=== PATIENT | male | born 1945 | race Caucasian/White ===

== ENCOUNTER 2021-05-17 08:46 | Outpatient (CLI) | payer MEDICARE, BC | END 2021-05-17 08:47 | disposition home or self-care (01) | LOC: CSHCT 08:46 | PROVIDERS: ATTEND Internal Medicine Hematology & Oncology | DX: C20 Malignant neoplasm of rectum (principal); Z98.890 Other specified postprocedural states | CPT/HCPCS: 71260; 74177; 82565 ==

== ENCOUNTER 2021-09-30 11:56 | Outpatient (CLI) | payer MEDICARE, BC ==
[2021-09-30 13:07] LABS: Hemoglobin 12.4 g/dL (13.5-17.5); Mean Corpuscular HGB CONC 32.5 g/dL (32.0-36.0); Mean Corpuscular Hemoglobin 30.5 pg (27.0-33.0); Mean Corpuscular Volume 93.6 fl (81.2-95.1); Mean Platelet Volume 9.5 fl (7.4-10.4); Platelet Count 241 10x3/uL (150-450); RBC Distribution Width 13.2 % (11.5-14.5); Red Blood Cell (RBC) Count 4.07 10x6/uL (4.32-5.72)
[2021-09-30 13:21] LABS: PTT 25.4 sec (22.0-33.0); Prothrombin Time 10.7 sec (9.5-12.1)
[2021-09-30 13:23] LABS: Anion Gap 15 mmol/L (10-20); BUN (Urea Nitrogen) 39 mg/dL (8.4-25.7); Calc. Creatinine Clearance 0 mL/min (70-130); Calcium 9.9 mg/dL (7.8-10.44); Carbon Dioxide 24 mmol/L (23-31); Chloride 103 mmol/L (98-107); Glucose 117 mg/dL (83-110); Potassium 4.1 mmol/L (3.5-5.1); Sodium 138 mmol/L (136-145)
[2021-09-30 16:45] LABS: Hemoglobin A1c 6.4 % (4.0-6.0)
[2021-10-01 12:54] LABS: SARS-CoV-2 PCR by NAA Not Detected (NotDetected)
== END 2021-09-30 11:57 | disposition home or self-care (01) ==
LOC: CSHLAB 11:56
PROVIDERS: ATTEND Orthopaedic Surgery
DX: Z01.818 Encounter for other preprocedural examination (principal); Z20.822 Contact with and (suspected) exposure to COVID-19; M12.811 Other specific arthropathies, not elsewhere classified, right shoulder; M75.101 Unspecified rotator cuff tear or rupture of right shoulder, not specified as traumatic; M71.311 Other bursal cyst, right shoulder
CPT/HCPCS: 80048; 82306; 83036; 85027; 85610; 85730; 87081; 93005; 93010; U0003; U0005

== ENCOUNTER 2021-11-18 08:26 | Outpatient (CLI) | payer MEDICARE, BC | END 2021-11-18 08:27 | disposition home or self-care (01) | LOC: CSHCT 08:26 | PROVIDERS: ATTEND Internal Medicine Hematology & Oncology | DX: C20 Malignant neoplasm of rectum (principal); Z98.890 Other specified postprocedural states | CPT/HCPCS: 71260; 74177; 82565 ==

== ENCOUNTER 2022-03-03 10:50 | Outpatient (CLI) | payer MEDICARE, BC ==
[2022-03-03 11:40] LABS: #Basophils 0.1 10x3/uL (0.0-0.2); #Eosinphils 0.4 10x3/uL (0.0-0.5); #Monocytes 0.6 10x3/uL (0.0-1.1); %Basophils 0.7 % (0.0-2.0); %Eosinophils 5.5 % (0.0-6.0); %Lymphocytes 14.6 % (18.0-47.0); %Monocytes 8.1 % (0.0-10.0); %Neutrophils 70.7 % (40.0-75.0); Hemoglobin 12.4 g/dL (13.5-17.5); Mean Corpuscular HGB CONC 33.8 g/dL (32.0-36.0); Mean Corpuscular Hemoglobin 30.6 pg (27.0-33.0); Mean Corpuscular Volume 90.6 fl (81.2-95.1); Mean Platelet Volume 8.9 fl (7.4-10.4); Platelet Count 225 10x3/uL (150-450); RBC Distribution Width 13.2 % (11.5-14.5); Red Blood Cell (RBC) Count 4.05 10x6/uL (4.32-5.72); White Blood Cell (WBC) Count 7.1 10x3/uL (3.5-10.5)
[2022-03-03 11:59] LABS: Anion Gap 15 mmol/L (10-20); BUN (Urea Nitrogen) 25 mg/dL (8.4-25.7); Calc. Creatinine Clearance 0 mL/min (70-130); Calcium 9.7 mg/dL (7.8-10.44); Carbon Dioxide 25 mmol/L (23-31); Chloride 101 mmol/L (98-107); Glucose 120 mg/dL (83-110); Potassium 3.5 mmol/L (3.5-5.1); Sodium 137 mmol/L (136-145)
[2022-03-03 12:18] LABS: Prothrombin Time 10.4 sec (9.5-12.1)
== END 2022-03-03 10:51 | disposition home or self-care (01) ==
LOC: CSHLAB 10:50
PROVIDERS: ATTEND Orthopaedic Surgery
DX: Z01.812 Encounter for preprocedural laboratory examination (principal); Z20.822 Contact with and (suspected) exposure to COVID-19; M12.811 Other specific arthropathies, not elsewhere classified, right shoulder; M75.101 Unspecified rotator cuff tear or rupture of right shoulder, not specified as traumatic; M71.311 Other bursal cyst, right shoulder
CPT/HCPCS: 80048; 82306; 83036; 85025; 85610; 87081; U0003; U0005

== ENCOUNTER 2022-03-03 11:00 | Inpatient (IN) | payer MEDICARE, BC ==
[2022-03-03 13:43] VITALS: BMI 36.2
[2022-04-19] MEDS ORDERED: Tranexamic Acid 1,000 MG/10 ML VIAL ONE (08:22)
[2022-04-19] MEDS ORDERED: Neomycin-Polymyxin 1 ML AMP ONE (08:22)
[2022-04-19] MEDS ORDERED: Lidocaine 1% MPF 2 ML VIAL ONE (11:13)
[2022-04-19] MEDS ORDERED: Gabapentin 300 MG CAP ONE (11:13)
[2022-04-19] MEDS ORDERED: Ketorolac Tromethamine 30 MG/ML VIAL ONE (11:13)
[2022-04-19] MEDS ORDERED: Acetaminophen 325 MG TAB ONE (11:15)
[2022-04-19] MEDS ORDERED: Ropivacaine 0.5% HCl/PF (150 MG/30 ML VIAL) ONE (12:48)
[2022-04-19] MEDS ORDERED: Midazolam HCl 2 mg/2 ml Vial ONE (12:48)
[2022-04-19] MEDS ORDERED: Lidocaine 1% PF 5 ML VIAL ONE ×2 (12:49→14:31)
[2022-04-19] MEDS ORDERED: Fentanyl 100 MCG/2 ML VIAL ONE ×2 (12:49→16:10)
[2022-04-19] MEDS ORDERED: HYDROcodone/Acetaminophen 5/325 mg Tablet PO PRN ×2 (14:00)
[2022-04-19] MEDS ORDERED: Ondansetron PF 4 MG/2 ML Vial IVP PRN ×2 (14:00→14:29)
[2022-04-19] MEDS ORDERED: Promethazine HCl 25 MG/ML VIAL IM PRN (14:00)
[2022-04-19] MEDS ORDERED: Ropivacaine 0.2% 550 ML 550 ML NERVE BLCK SCH (14:00)
[2022-04-19] MEDS ORDERED: traMADol HCl 50 MG TAB PO PRN ×2 (14:00)
[2022-04-19] MEDS ORDERED: Zolpidem Tartrate 5 MG TAB PO PRN (14:00)
[2022-04-19] MEDS ORDERED: Bisacodyl 10 MG SUPP PR PRN (14:29)
[2022-04-19] MEDS ORDERED: HYDROcodone/Acetaminophen 10/325 mg Tablet PO PRN ×2 (14:29)
[2022-04-19] MEDS ORDERED: Acetaminophen 325 MG TAB PO PRN (14:29)
[2022-04-19] MEDS ORDERED: diphenhydrAMINE 50 MG CAP PO PRN (14:29)
[2022-04-19] MEDS ORDERED: Sodium Chloride 0.9% 1,000 ML IV SCH (14:30)
[2022-04-19] MEDS ORDERED: CEFAZOLIN 2 GM VIAL ONE (14:31)
[2022-04-19] MEDS ORDERED: PROPOFOL 20 ML ONE (14:31)
[2022-04-19] MEDS ORDERED: Rocuronium Bromide 10 MG/ML (10ML VIAL) ONE (14:31)
[2022-04-19] MEDS ORDERED: ePHEDrine Sulfate 50 MG/10 ML VIAL ONE (15:10)
[2022-04-19] MEDS ORDERED: PHENYLEPHRINE-NS 100 MCG/ML 10 ML SYRINGE ONE (15:16)
[2022-04-19] MEDS ORDERED: Ondansetron PF 4 MG/2 ML Vial ONE (16:34)
[2022-04-19] MEDS ORDERED: Dexamethasone 4 mg/ml Vial ONE (16:34)
[2022-04-19] MEDS ORDERED: Glycopyrrolate 0.2 MG/ML 5 ML SYRINGE ONE (16:47)
[2022-04-19] MEDS: Ketorolac Tromethamine 30 MG/ML VIAL IVP SCH (19:21)
[2022-04-19] MEDS ORDERED: ceFAZolin 2 GM/Dextrose 50 ML 2 GM in Premix Bag 1 BAG IVPB SCH (20:30)
[2022-04-19] MEDS: CEFAZOLIN 2 GM in Sodium Chloride 0.9% 100 ML IVPB SCH (20:40)
[2022-04-19] MEDS ORDERED: Famotidine/PF 20 mg/2ml Vial SLOW IVP SCH (21:00)
[2022-04-20] MEDS: Ketorolac Tromethamine 30 MG/ML VIAL IVP SCH ×2 (01:05→07:36)
[2022-04-20] MEDS: CEFAZOLIN 2 GM in Sodium Chloride 0.9% 100 ML IVPB SCH (04:51)
[2022-04-20] MEDS ORDERED: Enoxaparin Sodium 30 MG/0.3 ML SYRINGE SC SCH (09:00)
[2022-04-20] MEDS ORDERED: Enoxaparin Sodium 40 MG/0.4 ML SYRINGE SC SCH (10:00)
[2022-04-20 17:37] VITALS: BP 166/76; TEMP 98.7
[2022-04-21] MEDS ORDERED: Enoxaparin Sodium 40 MG/0.4 ML SYRINGE SC SCH (09:00)
== END 2022-04-20 18:13 | disposition home or self-care (01) | DRG 483 ==
LOC: EDSTATUS 03-08 11:00 → CSHERHOLD 04-19 09:47 → CSHTELE 04-19 18:42
PROVIDERS: ADMIT Orthopaedic Surgery; ATTEND Orthopaedic Surgery
PROC: 0RRJ0JZ Replacement of Right Shoulder Joint with Synthetic Substitute, Open Approach (ICD-10-PCS; principal; 2022-04-19)
PROC: 0RBG0ZZ Excision of Right Acromioclavicular Joint, Open Approach (ICD-10-PCS; 2022-04-19)
DX: M19.011 Primary osteoarthritis, right shoulder (principal); E11.9 Type 2 diabetes mellitus without complications; F32.A Depression, unspecified; F17.210 Nicotine dependence, cigarettes, uncomplicated; M71.311 Other bursal cyst, right shoulder
CPT/HCPCS: 36416; A4306; C1713; C1776; J0690; J1885; J2250; J2704; J2795; J3010; J3370; J3490; J7050; S0028

== ENCOUNTER 2022-04-17 09:51 | Outpatient (CLI) | payer MEDICARE, BC ==
[2022-04-17 11:12] LABS: Hemoglobin 12.2 g/dL (13.5-17.5); Mean Corpuscular HGB CONC 33.5 g/dL (32.0-36.0); Mean Corpuscular Hemoglobin 30.7 pg (27.0-33.0); Mean Corpuscular Volume 91.5 fl (81.2-95.1); Mean Platelet Volume 9.3 fl (7.4-10.4); Platelet Count 247 10x3/uL (150-450); Red Blood Cell (RBC) Count 3.98 10x6/uL (4.32-5.72)
[2022-04-17 11:35] LABS: Anion Gap 15 mmol/L (10-20); BUN (Urea Nitrogen) 20 mg/dL (8.4-25.7); Calc. Creatinine Clearance 0 mL/min (70-130); Calcium 9.7 mg/dL (7.8-10.44); Carbon Dioxide 25 mmol/L (23-31); Chloride 102 mmol/L (98-107); Estimated GFR 76; Glucose 104 mg/dL (83-110); Potassium 4.1 mmol/L (3.5-5.1); Sodium 138 mmol/L (136-145)
[2022-04-17 14:10] LABS: Hemoglobin A1c 6.7 % (4.0-6.0)
== END 2022-04-17 09:52 | disposition home or self-care (01) ==
LOC: CSHLAB 09:51
PROVIDERS: ATTEND Orthopaedic Surgery
DX: Z01.818 Encounter for other preprocedural examination (principal); M12.811 Other specific arthropathies, not elsewhere classified, right shoulder; M75.101 Unspecified rotator cuff tear or rupture of right shoulder, not specified as traumatic; M71.311 Other bursal cyst, right shoulder; Z20.822 Contact with and (suspected) exposure to COVID-19
CPT/HCPCS: 80048; 82306; 83036; 85027; 87081; 87811; 93005; 93010

== ENCOUNTER 2022-05-05 08:34 | Outpatient (CLI) | payer MEDICARE, BC | END 2022-05-05 08:35 | disposition home or self-care (01) | LOC: CSHCT 08:34 | PROVIDERS: ATTEND Internal Medicine Hematology & Oncology | DX: C20 Malignant neoplasm of rectum (principal); D50.0 Iron deficiency anemia secondary to blood loss (chronic); Z98.890 Other specified postprocedural states; I70.90 Unspecified atherosclerosis | CPT/HCPCS: 71260; 74177; 82565 ==

== ENCOUNTER 2022-05-15 10:55 | Inpatient (IN) | payer MEDICARE, BC ==
[2022-05-11 09:37] VITALS: BMI 36.2
[~2022-05-15 10:55] MED LIST: Neomycin-Polymyxin 1 ML AMP ONE; Tranexamic Acid 1,000 MG/10 ML VIAL ONE
[2022-05-15] MEDS ORDERED: Ketorolac Tromethamine 30 MG/ML VIAL ONE ×2 (11:54→13:32)
[2022-05-15] MEDS ORDERED: Gabapentin 300 MG CAP ONE (11:54)
[2022-05-15] MEDS ORDERED: Acetaminophen 325 MG TAB ONE (11:56)
[2022-05-15] MEDS ORDERED: Lidocaine 1% MPF 2 ML VIAL ONE (12:24)
[2022-05-15] MEDS ORDERED: Acetaminophen 325 MG TAB PO PRN (12:40)
[2022-05-15] MEDS ORDERED: HYDROcodone/Acetaminophen 7.5/325 mg Tablet PO PRN (12:40)
[2022-05-15] MEDS ORDERED: Ondansetron PF 4 MG/2 ML Vial IVP PRN (12:40)
[2022-05-15] MEDS ORDERED: diphenhydrAMINE 50 MG CAP PO PRN (12:40)
[2022-05-15] MEDS ORDERED: traMADol HCl 50 MG TAB PO PRN ×2 (12:40)
[2022-05-15] MEDS ORDERED: Bisacodyl 10 MG SUPP PR PRN (12:40)
[2022-05-15] MEDS ORDERED: Vancomycin 1 GM in Premix Bag 1 BAG IVPB SCH (12:45)
[2022-05-15] MEDS ORDERED: CEFAZOLIN 2 GM VIAL ONE (12:59)
[2022-05-15] MEDS ORDERED: Rocuronium Bromide 10 MG/ML (10ML VIAL) ONE (13:00)
[2022-05-15] MEDS ORDERED: Lidocaine 1% PF 5 ML VIAL ONE (13:00)
[2022-05-15] MEDS ORDERED: Midazolam HCl 2 mg/2 ml Vial ONE (13:00)
[2022-05-15] MEDS ORDERED: Dexamethasone 20 MG/5 ML VIAL ONE (13:00)
[2022-05-15] MEDS ORDERED: PROPOFOL 20 ML ONE ×2 (13:00→13:45)
[2022-05-15] MEDS ORDERED: Fentanyl 250 MCG/5 ML VIAL ONE (13:00)
[2022-05-15] MEDS ORDERED: Ondansetron PF 4 MG/2 ML Vial ONE (13:00)
[2022-05-15] MEDS ORDERED: EPINEPHrine 1 MG/ML AMP ONE (13:32)
[2022-05-15] MEDS ORDERED: Ropivacaine 0.2% HCl/PF 40 ML ONE (13:33)
[2022-05-15] MEDS ORDERED: Glycopyrrolate 0.2 MG/ML 5 ML SYRINGE ONE (14:53)
[2022-05-15 17:25] LABS: Anion Gap 12 mmol/L (10-20); BUN (Urea Nitrogen) 18 mg/dL (8.4-25.7); Calc. Creatinine Clearance 110 mL/min (70-130); Calcium 8.8 mg/dL (7.8-10.44); Carbon Dioxide 25 mmol/L (23-31); Chloride 102 mmol/L (98-107); Estimated GFR 81; Glucose 203 mg/dL (83-110); Potassium 3.7 mmol/L (3.5-5.1); Sodium 135 mmol/L (136-145)
[2022-05-15] MEDS: Sodium Chloride 0.9% 1,000 ML IV SCH (17:51)
[2022-05-15] MEDS: Ketorolac Tromethamine 30 MG/ML VIAL IVP SCH ×2 (17:52→23:54)
[2022-05-15] MEDS ORDERED: Piperacillin/Tazobactam 3.375 GM in Sodium Chloride 0.9% 100 ML IVPB SCH (18:00)
[2022-05-15] MEDS ORDERED: Diphenoxylate HCl/Atropine Tablet PO PRN (20:55)
[2022-05-15] MEDS ORDERED: Rosuvastatin 20 MG TAB PO SCH (21:00)
[2022-05-15] MEDS ORDERED: Aspirin 81 mg Enteric Coated Tablet PO SCH (21:00)
[2022-05-15] MEDS ORDERED: FLUoxetine HCl 20 MG CAP PO SCH (21:00)
[2022-05-15] MEDS ORDERED: Allopurinol 100 MG TAB PO SCH (21:00)
[2022-05-15] MEDS ORDERED: Amitriptyline HCl 25 MG TAB PO SCH (21:00)
[2022-05-15] MEDS ORDERED: rOPINIRole HCl 0.25 MG TAB PO SCH (21:00)
[2022-05-15] MEDS ORDERED: HumaLOG 300 UNITS/3 ML VIAL SC SCH (21:00)
[2022-05-15] MEDS ORDERED: Lantus 1000 UNITS/10 ML VIAL SC SCH (21:00)
[2022-05-15] MEDS: Famotidine/PF 20 mg/2ml Vial SLOW IVP SCH (21:02)
[2022-05-15] MEDS: Piperacillin/Tazobactam 3.375 GM in Sodium Chloride 0.9% 100 ML IVPB SCH (21:31)
[2022-05-15] MEDS ORDERED: Vancomycin HCl 1 GM in Sodium Chloride 0.9% 250 ML 250 ML IVPB SCH (23:00)
[2022-05-16] MEDS: Ketorolac Tromethamine 30 MG/ML VIAL IVP SCH (07:14)
[2022-05-16] MEDS: Piperacillin/Tazobactam 3.375 GM in Sodium Chloride 0.9% 100 ML IVPB SCH (07:54)
[2022-05-16] MEDS ORDERED: metFORMIN 500 MG TAB PO SCH (08:00)
[2022-05-16] MEDS ORDERED: Multivit, Therapeutic 1 TAB PO SCH (09:00)
[2022-05-16] MEDS ORDERED: Amlodipine 10 MG TAB PO SCH (09:00)
[2022-05-16] MEDS ORDERED: Atenolol 25 MG TAB PO SCH (09:00)
[2022-05-16] MEDS ORDERED: Fish Oil 1,000 MG CAP PO SCH (09:00)
[2022-05-16] MEDS ORDERED: Fenofibrate 48 MG TAB PO SCH (09:00)
[2022-05-16] MEDS: Famotidine/PF 20 mg/2ml Vial SLOW IVP SCH (09:25)
[2022-05-16] MEDS: Sodium Chloride 0.9% 1,000 ML IV SCH (09:43)
[2022-05-16 11:59] VITALS: BP 149/70; TEMP 98.2
[2022-05-21] MEDS ORDERED: DULAGLUTIDE 1.5 MG/0.5 ML SC SCH (09:00)
== END 2022-05-16 13:27 | disposition home or self-care (01) | DRG 483 ==
LOC: CSHSDC 10:55 → CSHTELE 16:21
PROVIDERS: ADMIT Orthopaedic Surgery; ATTEND Orthopaedic Surgery
PROC: 0RPJ0J6 Removal of Synthetic Substitute from Right Shoulder Joint, Humeral Surface, Open Approach (ICD-10-PCS; principal; 2022-05-15)
PROC: 0RRJ0J6 Replacement of Right Shoulder Joint with Synthetic Substitute, Humeral Surface, Open Approach (ICD-10-PCS; 2022-05-15)
PROC: 0R9J0ZZ Drainage of Right Shoulder Joint, Open Approach (ICD-10-PCS; 2022-05-15)
DX: T84.038A Mechanical loosening of other internal prosthetic joint, initial encounter (principal); L76.34 Postprocedural seroma of skin and subcutaneous tissue following other procedure; F32.A Depression, unspecified; E11.9 Type 2 diabetes mellitus without complications; M10.9 Gout, unspecified; Y83.8 Other surgical procedures as the cause of abnormal reaction of the patient, or of later complication, without mention of misadventure at the time of the procedure
CPT/HCPCS: 36415; 36416; 80048; 87070; 87102; 87205; 87206; 88305; 94760; C1713; C1776; J0171; J0690; J1100; J1815; J1885; J2250; J2405; J2543; J2704; J2795; J3010; J3370; J3490; J7050; S0028

== ENCOUNTER 2022-10-20 08:28 | Outpatient (CLI) | payer MEDICARE, BC ==
[2022-10-20] MEDS ORDERED: Iopamidol 300 61% 100 ML VIAL FS ONE (10:19)
== END 2022-10-20 08:29 | disposition home or self-care (01) ==
LOC: CSHCT 08:28
PROVIDERS: ATTEND Internal Medicine Hematology & Oncology
DX: C20 Malignant neoplasm of rectum (principal); S22.41XD Multiple fractures of ribs, right side, subsequent encounter for fracture with routine healing; K40.90 Unilateral inguinal hernia, without obstruction or gangrene, not specified as recurrent
CPT/HCPCS: 71260; 74177; 82565; Q9967

== ENCOUNTER 2023-04-20 08:55 | Outpatient (CLI) | payer MEDICARE, BC ==
[2023-04-20] MEDS ORDERED: Iopamidol 370 76% 100 ML VIAL ONE (09:29)
== END 2023-04-20 08:56 | disposition home or self-care (01) ==
LOC: CSHCT 08:55
PROVIDERS: ATTEND Internal Medicine Hematology & Oncology
DX: C20 Malignant neoplasm of rectum (principal)
CPT/HCPCS: 71260; 74177; 82565; Q9967

== ENCOUNTER 2023-10-19 07:58 | Outpatient (CLI) | payer MEDICARE | END 2023-10-19 07:59 | disposition home or self-care (01) | LOC: CSHCT 07:58 | PROVIDERS: ATTEND Internal Medicine Hematology & Oncology | DX: C20 Malignant neoplasm of rectum (principal) | CPT/HCPCS: 71260; 74177; 82565 ==

== ENCOUNTER 2023-11-13 07:35 | Outpatient (CLI) | payer MEDICARE | END 2023-11-13 07:36 | disposition home or self-care (01) | LOC: CSHULT 07:35 | PROVIDERS: ATTEND Internal Medicine Gastroenterology | DX: K74.60 Unspecified cirrhosis of liver (principal); C20 Malignant neoplasm of rectum | CPT/HCPCS: 76705 ==

== ENCOUNTER 2024-02-14 09:52 | Outpatient (CLI) | payer MEDICARE ==
[2024-02-14 11:52] LABS: Hematocrit 41.1 % (38.8-50.0); Hemoglobin 14.1 g/dL (13.5-17.5); Mean Corpuscular HGB CONC 34.3 g/dL (32.0-36.0); Mean Corpuscular Hemoglobin 30.6 pg (27.0-33.0); Mean Corpuscular Volume 89.2 fl (81.2-95.1); Mean Platelet Volume 9.4 fl (7.4-10.4); Platelet Count 250 10x3/uL (150-450); RBC Distribution Width 14.5 % (11.5-14.5); Red Blood Cell (RBC) Count 4.61 10x6/uL (4.32-5.72); White Blood Cell (WBC) Count 7.3 10x3/uL (3.5-10.5)
[2024-02-14 12:23] LABS: Prothrombin Time 10.9 sec (9.5-12.1)
[2024-02-14 12:30] LABS: ALT (SGPT) 25 U/L (8-55); AST (SGOT) 27 U/L (5-34); Alkaline Phosphatase 63 U/L (40-110); Anion Gap 16 mmol/L (10-20); BUN (Urea Nitrogen) 32 mg/dL (8.4-25.7); Bilirubin, Total 0.6 mg/dL (0.2-1.2); Calc. Creatinine Clearance 0 mL/min (70-130); Calcium 10.3 mg/dL (7.8-10.44); Carbon Dioxide 24 mmol/L (23-31); Chloride 100 mmol/L (98-107); Estimated GFR 60; Globulin 3.1 g/dL (2.4-3.5); Glucose 114 mg/dL (83-110); Magnesium 1.9 mg/dL (1.6-2.6); Potassium 4.2 mmol/L (3.5-5.1); Protein, Total 7.1 g/dL (5.8-8.1); Sodium 136 mmol/L (136-145)
== END 2024-02-14 09:53 | disposition home or self-care (01) ==
LOC: CSHLAB 09:52
PROVIDERS: ATTEND Specialist
DX: Z01.818 Encounter for other preprocedural examination (principal); I48.91 Unspecified atrial fibrillation
CPT/HCPCS: 80053; 83735; 85027; 85610; 93005; 93010

== ENCOUNTER → 2024-02-15 | Day surgery (SDC) | payer MEDICARE | LOC: CSHSDC 08:43 | PROVIDERS: ATTEND Specialist | DX: I48.19 Other persistent atrial fibrillation (principal); I11.0 Hypertensive heart disease with heart failure; I50.32 Chronic diastolic (congestive) heart failure; I25.10 Atherosclerotic heart disease of native coronary artery without angina pectoris; E78.2 Mixed hyperlipidemia; K21.9 Gastro-esophageal reflux disease without esophagitis; E11.59 Type 2 diabetes mellitus with other circulatory complications; F17.290 Nicotine dependence, other tobacco product, uncomplicated; Z53.9 Procedure and treatment not carried out, unspecified reason; Z79.82 Long term (current) use of aspirin; Z79.01 Long term (current) use of anticoagulants; Z79.84 Long term (current) use of oral hypoglycemic drugs; Z79.899 Other long term (current) drug therapy; Z79.4 Long term (current) use of insulin; Z95.1 Presence of aortocoronary bypass graft; Z96.611 Presence of right artificial shoulder joint; Z90.49 Acquired absence of other specified parts of digestive tract | CPT/HCPCS: 93005; 93010 ==